=== PATIENT | male | born 1985 | race Caucasian/White ===

== ENCOUNTER 2025-03-29 16:07 | Emergency (ER) | payer MEDICAID, SELFPAY ==
--- NOTE | 2025-03-29 16:11 | EKG_ITS ---
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
[2025-03-29 16:28] VITALS: BP 169/106; PULSE 104; RESP 19; O2SAT 96
[2025-03-29 16:29] VITALS: BMI 42.3
--- NOTE | 2025-03-29 16:29 | XR_ITS ---
Examination: PA lateral chest 2 views TECHNIQUE: Upright PA lateral chest 2 views Date and time: March 29, 2025 1648 hours INDICATIONS: Left-sided chest pain beginning 4 days ago. FINDINGS: Normal heart size The lungs are clear. The osseous structures are intact IMPRESSION: No active disease
--- NOTE | 2025-03-29 16:29 | PD.EDRME ---
Rapid Medical Screening Exam RME Arrival date/time: 03/29/25 16:07 40-year-old male with no known medical history presents to the emergency room with a chief complaint of 6 out of 10 sternal chest pain and shortness of breath x 3 days. I have greeted and performed a focused initial assessment of this patient. A comprehensive ED assessment and evaluation of the patient, analysis of all test results, and completion of the medical decision making process will be conducted by additional ED providers. Chief Complaint: Chest Pain Vital signs: Vital Signs Pulse Rate 104 H 03/29/25 16:28 Respiratory Rate 19 03/29/25 16:28 Blood Pressure 169/106 H 03/29/25 16:28 Pulse Oximetry (%) 96 03/29/25 16:28 Oxygen Delivery Method Room Air 03/29/25 16:28 Vital signs reviewed by provider: Yes
[2025-03-29 16:51] LABS: Basophils # (Auto) 0.0 Thou/mm3 (0.0-0.2); Basophils % (Auto) 0 % (0-2.5); Eosinophils # (Auto) 0.1 Thou/mm3 (0.0-0.5); Eosinophils % (Auto) 1 % (0-10); Hematocrit 43.3 % (41.0-53.0); Hemoglobin 14.9 g/dL (13.5-16.0); Immature Granulocytes Auto 0.02 Thou/mm3 (0.00-0.00); Lymphocytes # (Auto) 2.2 Thou/mm3 (1.0-4.8); Lymphocytes % (Auto) 31 % (10-50); Mean Corpuscular HGB Conc 34.4 g/dl (31.0-37.0); Mean Corpuscular Hemoglobin 30.2 pg (25.0-35.0); Mean Corpuscular Volume 88 fL (80-100); Monocytes # (Auto) 0.6 Thou/mm3 (0.0-0.8); Monocytes % (Auto) 8 % (0-12); Neutrophils # (Auto) 4.1 Thou/mm3 (1.8-7.7); Neutrophils % (Auto) 59 % (37-80); Nucleated Red Blood Cell # 0.00 Thou/mm3 (0.00-0.00); Nucleated Red Blood Cell % 0 /100 WBC (0); Platelet Count 228 Thou/mm3 (140-440); RDW Standard Deviation 39.0 fL (35.1-43.9); Red Blood Count 4.93 Miln/mm3 (4.50-5.90); White Blood Count 6.9 Thou/mm3 (3.8-10.6)
[2025-03-29 16:56] LABS: Collection Type, Urine Clean Catch; Squamous Epithelial Cell,Urine 0 /hpf (0-5)
[2025-03-29 17:03] LABS: B-Type Natriuretic Peptide < 20 pg/mL (0-100); Bilirubin,Urine Negative (Negative); Blood,Urine Trace (Negative); Clarity,Urine Clear (Clear/Hazy); Color,Urine Lt-Yellow (Lt Yel-Yel); Glucose, Urine Negative (Negative); Ketones,Urine Negative (Negative); Leukocyte Esterase,Urine Negative (Negative); Nitrite,Urine Negative (Negative); PH,Urine 6.0 (5.0-7.0); Protein,Urine Trace (Neg - Trace); RBC,Urine 2 /hpf (0-3); Specific Gravity,Urine 1.023 (1.001-1.035); Urobilinogen,Urine Negative mg/dL (0.0-1.0); WBC,Urine 1 /hpf (0-5)
[2025-03-29 17:05] LABS: Alanine Aminotransferase 54 U/L (10-49); Albumin, Serum 4.8 gm/dL (3.5-5.0); Albumin/Globulin Ratio 1.8 (1.2-2.2); Alkaline Phosphatase 47 U/L (46-116); Anion Gap 10 (7-16); Aspartate Amino Transferase 28 U/L (0-34); BUN/Creatinine Ratio 11 Ratio (12-20); Bilirubin,Total 0.4 mg/dL (0.3-1.2); Blood Urea Nitrogen 10 mg/dL (9-23); Calcium 9.5 mg/dL (8.3-10.6); Calcium (Corrected) 9.5 mg/dL (8.5-10.1); Carbon Dioxide 27.5 mMol/L (20.0-31.0); Chloride 104 mMol/L (98-107); Creatinine (Component) 0.9 mg/dL (0.6-1.3); Estimated Creatinine Clearance 157.7 mL/min (>60); Globulin 2.6 gm/dL (2.3-3.5); Glucose 106 mg/dL (74-106); Osmolality,Calculated 280 (275-295); Potassium 4.1 mMol/L (3.4-5.1); Sodium 141 mMol/L (136-145); Total Protein 7.4 gm/dL (5.7-8.2); Troponin I < 0.002 ng/mL (0.0-0.045); eGFR > 60 See Note
[2025-03-29 17:20] LABS: Amphetamine/Methamp Scrn,U Negative (Negative); Barbiturate Screen,Urine Negative (Negative); Benzodiazepines Screen,Urine Negative (Negative); Benzoylecgonine Screen, Ur Negative (Negative); Fentanyl Screen,Urine Negative (Negative); Opiate Screen,Urine Negative (Negative); THC Screen,Urine Negative (Negative)
--- NOTE | 2025-03-29 17:24 | EDNOTE_ITS ---
<Statement entered by Juhi Guy MD - 03/30/25 06:45> As co-signing physician, I was present and available for consult prn. I concur with the plan and care as documented by the midlevel provider. ED General RME/HPI General Chief complaint: Chest Pain Stated complaint: CHEST PAIN X 3 DAYS Time Seen by Provider: 03/29/25 17:24 Arrival date/time: 03/29/25 16:07 CC: Left-sided chest pain HPI ongoing for the past 3 days after vaping and having a coughing episode. Patient denies fever chills shortness of breath or difficulty breathing patient is obese has not vaped since the episode, has not been taking any OTC medications. Patient is awake alert oriented mild discomfort but not in any acute distress. RME / HPI RME / HPI narrative: 03/29/25 16:07 40-year-old male with no known medical history presents to the emergency room with a chief complaint of 6 out of 10 sternal chest pain and shortness of breath x 3 days. I have greeted and performed a focused initial assessment of this patient. A comprehensive ED assessment and evaluation of the patient, analysis of all test results, and completion of the medical decision making process will be conducted by additional ED providers. Related Data Home Medications ?Medication ?Instructions ?Recorded ?Confirmed buprenorphine HCl 8 mg sublingual 8 mg QDAY 09/04/18 0 10/12/21 tablet omeprazole 20 mg tablet,delayed 20 mg PO QDAY 10/12/21 10/12/21 release Previous Rx's ?Medication ?Instructions ?Recorded ibuprofen 800 mg tablet 800 mg PO TID PRN pain #30 t abs 09/10/20 Allergies Allergy/AdvReac Type Severity Reaction Status Date / Time codeine Allergy Severe THROAT Verified 09/10/20 15:04 SWELLING, SOB Review of Systems Review of Systems Narrative Review of Systems: GEN: No fever, no chills, no weight loss EYES: No discharge, no visual changes, no pain HEENT: No ear pain, no congestion, no sore throat PULM: No shortness of breath, no cough, no congestion CV: + chest pain, no dyspnea on exertion, no palpitations GI: No nausea, no vomiting, no diarrhea, no pain, no constipation : No frequency, no urgency, no dysuria MUSC/SKEL: No joint pain, no back pain SKIN: No rash PSYCH: No hallucinations, no depression HEME/LYMPH: No easy bleeding or bruising tendencies NEURO: No weakness, no headache Past Medical History Past Medical History CARDIAC: Negative Congestive Heart Failure RESPIRATORY: Negative Chronic Obstructive Pulmonary Disease (COPD) GENITOURINARY: Negative Renal Disease ENDOCRINE: Negative Diabetes Mellitus Type 1 or Diabetes Mellitus Type 2 Social History SMOKING STATUS: Light (< 1 pack/day) ED Exam Narrative Physical exam: [General: Morbidly obese anxious but not in any , acute distress Head normocephalic HEENT: Within acceptable limits Neck is supple nontender Chest equal chest rise nontender to palpation (complains of pain with deep inhalation) Respiratory: Clear to auscultation no wheezes crackles or rubs CV: Rate rhythm is regular no murmurs rubs or clicks Abdomen is distended secondary to body habitus soft nontender no masses positive bowel sounds all 4 quadrants Back: No CVA tenderness no spinous process tenderness from cervical spine thoracic and lumbar spine Skin: Intact no petechiae rash induration ulceration or crepitus Extremities: Moving all extremity against resistance cap refill less than 2 seconds neurosensory intact Neuro: Awake alert oriented x3 Glascow coma 15 no focal deficits] Course Quality Measures none Orders Category Date Time Status EKG (ED ONLY) *Do not use* NOW Care 03/29/25 16:11 Completed EKG (ED Only) Stat Exams 03/29/25 16:11 Draft EKG (ED Only) Urgent Exams 03/29/25 16:11 Ordered XR chest 2V Stat Exams 03/29/25 16:29 Completed B-Type Natriuretic Peptide Stat Lab 03/29/25 16:40 Completed CBC Stat Lab 03/29/25 16:40 Received Comprehensive Metabolic Panel Stat Lab 03/29/25 16:40 Completed Drug Screen,Urine Stat Lab 03/29/25 16:40 Completed Troponin I Stat Lab 03/29/25 16:40 Completed Urinalysis Stat Lab 03/29/25 16:40 Completed Vital Signs Vital signs: Vital Signs Pulse Rate 104 H 03/29/25 16:28 Respiratory Rate 19 03/29/25 16:28 Blood Pressure 169/106 H 03/29/25 16:28 Pulse Oximetry (%) 96 03/29/25 16:28 Oxygen Delivery Method Room Air 03/29/25 16:28 Discharge Plan Plan Patient Disposition: HOME (Self Care) Patient condition on transfer: Stable Prescriptions/Referrals Prescriptions/Med Rec: No Action buprenorphine HCl 8 mg Tablet, Sublingual 8 mg QDAY ibuprofen 800 mg tablet 800 mg PO TID PRN (Reason: pain) Qty: 30 0RF omeprazole 20 mg Tablet,Delayed Release (Dr/Ec) 20 mg PO QDAY Referrals: Wing Gilmore MD [Physician] - In 1 week No Primary/Family,Physician [Primary Care Provider] - In 1 week Problem List Clinical Impression: Chest pain Patient/Caregiver Discharge Instructions Additional Instructions: Stop vaping, ibuprofen or Tylenol for pain this will dissipate over time if there is a worsening of symptoms in spite of medications return the emergency room immediately for further evaluation. Print Language: Afghan Stand Alone Forms: Careem Info., Work/School Release, Patient Portal Info Letter PA/[employer] Supervising Physician PA/[employer] Supervising Physician: Antonio Becerra ENP [facility] Clinical Information Provided by patient Medical Records Reviewed [facility] Meds/Rx Considered, not Ordered None Labs/Rad/Tests considered, not Ordered None Chronic Illness/Social Conditions Add or document further as needed: Morbid obesity Lab Interpretation Labs: interpreted by me Lab(s) interpretation(s): CMP shows no acute electrolyte imbalances renal impairment transaminitis or T. bili elevation Troponin is negative BNP is negative Urine is negative UDS is negative Imaging Imaging interpretation: interpreted by me Provider imaging interpretation(s): Checks x-ray as interpreted by me read by radiology as negative Medication Administration(s) none Diagnosis Differential dx and/or dx ruled out: All the pain is reproducible with deep inhalation torso rotation cough or sneeze this is all pleuritic in nature. The patient has no significant shortness of breath with stable vital signs comfortable discharging him home heart score of 1. Dispositon Disposition: Discharge Home
== END 2025-03-29 17:37 | disposition home or self-care (01) ==
PROVIDERS: Nurse Practitioner Family; Emergency Provider Emergency Medicine
DX: R07.89 Other chest pain (principal); R94.31 Abnormal electrocardiogram [ECG] [EKG]
CPT/HCPCS: 36415; 71046; 80053; 80307; 81001; 83880; 84484; 85025; 93005; 99283